=== PATIENT | female | born 1995 | race African-American/Black ===

== ENCOUNTER 2017-04-14 13:52 | Inpatient (IN) ==
[2017-04-14] MEDS ORDERED: ONDANSETRON 4 MG/2 ML VIAL IV PRN (14:28)
[2017-04-14 14:45] LABS: Basophils % 0.3 % (0.0-0.8); Eosinophils # 0.1 10*3/uL (0.0-0.87); Eosinophils % 0.4 % (0.00-10.9); Hematocrit 35.4 VOL% (35.7-47.0); Hemoglobin 11.9 GM/DL (12.0-16.0); Immature Granulocytes % 1.1 %; Immature Granulocytes Absolute 0.18 #; Lymphocytes # 2.6 10*3/uL (1.4-4.0); Lymphocytes % 16.2 % (21.3-54.2); Mean Corpuscular HGB Conc 33.6 GM/DL (32-36); Mean Corpuscular Hemoglobin 30 PG (27-34); Mean Corpuscular Volume 89.4 FL (87-102); Mean Platelet Volume 11.1 FL (9.6-12.0); Monocytes # 1.1 10*3/uL (0.11-0.8); Monocytes % 6.7 % (1.7-12.7); Neutrophils % 75.3 % (38.7-73.9); Platelet Count 249 T/CUMM (130-400); Red Blood Count 3.96 MC/CUMM (3.8-5.5); Red Cell Distribution Width 13.2 % (9.3-17.3); White Blood Count 15.9 T/CUMM (4-12)
[2017-04-14] MEDS: OXYTOCIN/LR 20 UNIT/1,000 ML BAG IV SCH (14:58)
[2017-04-14] MEDS: LACTATED RINGERS 1,000 ML IV SCH ×2 (14:58→20:15)
[2017-04-14 15:07] LABS: Albumin 2.9 G/DL (3.4-5.0); Bilirubin,Total 0.5 MG/DL (0.2-1.0); Osmolality,Calculated 269.8 MOS/KG (273-304); Potassium 3.7 MMOL/L (3.5-5.1); Total Protein 6.8 G/DL (6.4-8.3)
[2017-04-14] MEDS: AMPICILLIN INJ 2,000 MG in SODIUM CHLORIDE 0.9% 100 ML IV SCH ×2 (15:59→21:54)
[2017-04-14] MEDS ORDERED: PROMETHAZINE 25 MG/1 ML VIAL IM ONE (16:35)
[2017-04-14] MEDS ORDERED: ONDANSETRON 4 MG/2 ML VIAL IV ONE (16:35)
[2017-04-14] MEDS ORDERED: hydrOXYzine HCL 25 MG/1 ML VIAL IM PRN (16:35)
[2017-04-14] MEDS ORDERED: diphenhydrAMINE 50 MG/1 ML VIAL IV PRN ×2 (16:35)
[2017-04-14] MEDS ORDERED: CITRIC ACID/SODIUM CITRATE 30 ML UDCUP PO ONE (16:35)
[2017-04-14] MEDS ORDERED: ePHEDrine 50 MG/ML AMP IV PRN (16:35)
[2017-04-14] MEDS ORDERED: FAMOTIDINE 20 MG/2 ML VIAL IV ONE (16:35)
[2017-04-14] MEDS ORDERED: fentaNYL 2 MCG/ROPIV 0.2% EPID 150 ML EPIDURAL SCH (17:00)
[2017-04-15] MEDS: OXYTOCIN/LR 20 UNIT/1,000 ML BAG IV SCH (02:10)
[2017-04-15] MEDS: LACTATED RINGERS 1,000 ML IV SCH (02:24)
[2017-04-15] MEDS: AMPICILLIN INJ 2,000 MG in SODIUM CHLORIDE 0.9% 100 ML IV SCH (03:47)
[2017-04-15] MEDS ORDERED: MEPERIDINE 50 MG/1 ML VIAL IV PRN (04:32)
[2017-04-15] MEDS ORDERED: MEPERIDINE 50 MG/1 ML VIAL ONE (04:43)
[2017-04-15] MEDS ORDERED: CITRIC ACID/SODIUM CITRATE 30 ML UDCUP ONE (05:29)
[2017-04-15] MEDS ORDERED: FAMOTIDINE 20 MG/2 ML VIAL IV ONE (05:35)
[2017-04-15] MEDS ORDERED: miSOPROStol 200 MCG TABLET ONE (08:46)
[2017-04-15] MEDS ORDERED: LIDOCAINE 1% 50 ML VIAL ONE (08:46)
[2017-04-15 10:00] LABS: Cord Venous Blood HCO3 21.7 MMOL/L; Cord Venous Blood PCO2 52.6 MMHG
[2017-04-15] MEDS ORDERED: DIPH/TET/ACEL PERT BOOSTER VACCINE 0.5 ML VIAL IM ONE (11:52)
[2017-04-15] MEDS ORDERED: BISACODYL 10 MG SUPP RECTAL PRN (11:52)
[2017-04-15] MEDS ORDERED: BENZOCAINE 20%/MENTHOL 0.5% SPRAY 56 GM CAN TOP PRN (11:52)
[2017-04-15] MEDS ORDERED: MEASLES/MUMPS/RUBELLA VACCINE 0.5 ML VIAL SUBCUT ONE (11:52)
[2017-04-15] MEDS ORDERED: HYDROCORTISONE 2.5% RECTAL CREAM 30 GM TUBE TOP PRN (11:52)
[2017-04-15] MEDS ORDERED: LANOLIN 50% CREAM 0.3 OZ TUBE TOP PRN (11:52)
[2017-04-15] MEDS ORDERED: IBUPROFEN 800 MG TABLET PO PRN (11:52)
[2017-04-15] MEDS ORDERED: RHO(D) IMMUNE GLOBULIN 300 MCG SYRINGE IM ONE (11:52)
[2017-04-15] MEDS ORDERED: ACETAMINOPHEN 325 MG TABLET PO PRN (11:52)
[2017-04-15] MEDS ORDERED: WITCH HAZEL PADS 100/JAR TOP PRN (11:52)
[2017-04-15] MEDS ORDERED: oxyCODONE/ACETAMINOPHEN 5-325 MG TABLET PO PRN ×2 (11:52)
[2017-04-15] MEDS: ACETAMINOPHEN/CODEINE 300-30 MG TABLET PO PRN ×2 (14:01→19:59)
[2017-04-15] MEDS: DOCUSATE SODIUM 100 MG CAPSULE PO SCH (21:38)
[2017-04-16 06:16] LABS: Basophils % 0.2 % (0.0-0.8); Eosinophils # 0.1 10*3/uL (0.0-0.87); Eosinophils % 0.6 % (0.00-10.9); Hematocrit 26.8 VOL% (35.7-47.0); Hemoglobin 9.3 GM/DL (12.0-16.0); Immature Granulocytes Absolute 0.16 #; Lymphocytes # 3.3 10*3/uL (1.4-4.0); Mean Corpuscular HGB Conc 34.7 GM/DL (32-36); Mean Corpuscular Hemoglobin 31 PG (27-34); Mean Platelet Volume 11.6 FL (9.6-12.0); Monocytes # 1.2 10*3/uL (0.11-0.8); Monocytes % 7.6 % (1.7-12.7); Neutrophils # 10.8 10*3/uL (1.4-7.4); Neutrophils % 69.6 % (38.7-73.9); Platelet Count 199 T/CUMM (130-400); Red Blood Count 3.01 MC/CUMM (3.8-5.5); Red Cell Distribution Width 13.5 % (9.3-17.3); White Blood Count 15.6 T/CUMM (4-12)
[2017-04-16] MEDS: DOCUSATE SODIUM 100 MG CAPSULE PO SCH ×2 (09:36→22:00)
[2017-04-16] MEDS: FERROUS SULFATE 325 MG TABLET PO SCH ×2 (09:36→22:00)
[2017-04-17 07:16] VITALS: BP 140/84
[2017-04-17] MEDS: DOCUSATE SODIUM 100 MG CAPSULE PO SCH (08:34)
[2017-04-17] MEDS: FERROUS SULFATE 325 MG TABLET PO SCH (08:34)
== END 2017-04-17 12:00 | disposition home or self-care (01) | DRG 775 ==
LOC: N.LDOUT 13:52 → N.LD 13:54 → N.OB 04-15 11:27
PROVIDERS: ADMIT Obstetrics & Gynecology; ATTEND Obstetrics & Gynecology

== ENCOUNTER 2022-03-15 06:21 | Inpatient (IN) ==
[2022-03-15] MEDS ORDERED: GABAPENTIN 400 MG CAPSULE PO ONE (06:54)
[2022-03-15] MEDS ORDERED: ACETAMINOPHEN 500 MG TABLET PO ONE (06:54)
[2022-03-15] MEDS ORDERED: FAMOTIDINE 20 MG TABLET PO ONE (06:54)
[2022-03-15] MEDS ORDERED: HYDROmorphone 1 MG/1 ML SYRINGE IV ONE (06:55)
[2022-03-15] MEDS ORDERED: ONDANSETRON 4 MG/2 ML VIAL IV ONE (06:56)
[2022-03-15] MEDS: LACTATED RINGERS 1,000 ML IV SCH ×4 (07:00→17:12)
[2022-03-15 07:50] LABS: HIV Antigen/Antibody Result Nonreactive (Nonreactive)
[2022-03-15] MEDS ORDERED: MIDAZOLAM 2 MG/2 ML VIAL ONE (08:30)
[2022-03-15] MEDS ORDERED: fentaNYL 100 MCG/2 ML VIAL ONE (08:30)
[2022-03-15] MEDS ORDERED: DEXAMETHASONE 4 MG/1 ML VIAL ONE (08:31)
[2022-03-15] MEDS ORDERED: ROPIVACAINE 0.5% 30 ML VIAL ONE (08:32)
[2022-03-15] MEDS ORDERED: LIDOCAINE 1% 5 ML VIAL ONE (08:32)
[2022-03-15] MEDS ORDERED: ePHEDrine 50 MG/ML VIAL ONE (09:35)
[2022-03-15] MEDS ORDERED: LIDOCAINE 2% 5 ML VIAL ONE (09:47)
[2022-03-15] MEDS ORDERED: ONDANSETRON 4 MG/2 ML VIAL ONE (09:47)
[2022-03-15] MEDS ORDERED: ROCURONIUM 50 MG/5 ML VIAL IV ONE (09:47)
[2022-03-15] MEDS ORDERED: SEVOFLURANE 1 UNIT/15 MINUTE INH ONE (09:47)
[2022-03-15] MEDS ORDERED: propofoL 200 MG/20 ML VIAL IV ONE (09:47)
[2022-03-15] MEDS ORDERED: NEOSTIGMINE 10 MG/10 ML VIAL ONE (09:48)
[2022-03-15] MEDS ORDERED: GLYCOPYRROLATE 0.4 MG/2 ML VIAL ONE (09:48)
[2022-03-15] MEDS ORDERED: PHENYLEPHRINE 1 MG/10 ML SYRINGE IV ONE (09:48)
[2022-03-15] MEDS ORDERED: ACETAMINOPHEN 325 MG TABLET PO PRN (10:10)
[2022-03-15] MEDS ORDERED: BENZOCAINE/MENTHOL LOZENGE 18/BOX PO PRN (10:10)
[2022-03-15] MEDS ORDERED: BISACODYL 10 MG SUPP RECTAL PRN (10:10)
[2022-03-15] MEDS ORDERED: ONDANSETRON 4 MG/2 ML VIAL IV PRN (10:10)
[2022-03-15 10:23] LABS: Glucose,Urine (UA) 100 mg/dL (Negative); Ketones,Urine Negative (Negative); Mucus,Urine Occasional /LPF (Occasional); Protein,Urine Negative (Negative); RBC,Urine 1 /HPF (0-4); Squamous Epithelial Cell,Urine Occasional /HPF (0-10); Urine Appearance Clear (Clear); Urine Color Yellow (Yellow); Urine Specific Gravity 1.025 (1.001-1.035)
[2022-03-15 10:24] LABS: Bilirubin,Urine Negative (Negative); Blood, Urine Negative (Negative); Nitrite,Urine Negative (Negative); Urine Urobilinogen 0.2 eU/dL (<2.0)
[2022-03-15] MEDS ORDERED: HYDROmorphone 1 MG/1 ML SYRINGE IV PRN ×2 (10:36→11:14)
[2022-03-15] MEDS: IBUPROFEN 800 MG TABLET PO PRN ×2 (11:25→23:10)
[2022-03-16 05:33] LABS: Basophils % 0.2 % (0.0-0.8); Eosinophils % 0.2 % (0.00-10.9); Hematocrit 29.5 VOL% (35.7-47.0); Immature Granulocytes % 0.5 %; Immature Granulocytes Absolute 0.07 #; Lymphocytes # 2.3 10*3/uL (1.4-4.0); Lymphocytes % 17.8 % (21.3-54.2); Mean Corpuscular HGB Conc 33.9 GM/DL (32-36); Mean Corpuscular Volume 87.8 FL (87-102); Mean Platelet Volume 9.6 FL (9.6-12.0); Monocytes # 1.4 10*3/uL (0.11-0.8); Monocytes % 10.6 % (1.7-12.7); Neutrophils % 70.7 % (38.7-73.9); Platelet Count 344 T/CUMM (130-400); Red Blood Count 3.36 MC/CUMM (3.8-5.5); Red Cell Distribution Width 12.8 % (9.3-17.3); White Blood Count 13.1 T/CUMM (4-12)
[2022-03-16] MEDS: METOCLOPRAMIDE 10 MG TABLET PO SCH ×2 (08:19→17:21)
[2022-03-16] MEDS: MAGNESIUM HYDROXIDE SUSP 30 ML UDCUP PO PRN ×2 (08:19→21:02)
[2022-03-16] MEDS: DOCUSATE SODIUM 100 MG CAPSULE PO PRN ×2 (08:19→21:02)
[2022-03-17] MEDS: METOCLOPRAMIDE 10 MG TABLET PO SCH ×2 (00:05→08:27)
[2022-03-17] MEDS: IBUPROFEN 800 MG TABLET PO PRN (06:22)
[2022-03-17] MEDS: MAGNESIUM HYDROXIDE SUSP 30 ML UDCUP PO PRN (08:27)
[2022-03-17] MEDS: DOCUSATE SODIUM 100 MG CAPSULE PO PRN (08:28)
[2022-03-17 09:38] VITALS: BP 140/83
== END 2022-03-17 11:15 | disposition home or self-care (01) | DRG 743 ==
LOC: N.OR 06:21 → N.SDSINP 06:24 → N.OB 10:09
PROVIDERS: ADMIT Obstetrics & Gynecology; ATTEND Obstetrics & Gynecology